=== PATIENT | female | born 1970 | race Two or more races ===

== ENCOUNTER 2019-05-31 16:35 | Inpatient (IN) | payer OTHER ==
[2019-05-31 16:44] VITALS: BMI 38.7
--- NOTE | 2019-05-31 16:53 | PDOC ---
Rapid Medical Evaluation Time Seen by Provider: 05/31/19 16:39 Medical Evaluation: 05/31/19 16:41 I have performed a brief in-person evaluation of this patient. The patient presents with a chief complaint of: B/l leg pain. Pt poor historian w/ h/o bipolar and reports spinal injections in the past for ? LE weakness. Uses wheelchair currently and unclear if pt can ambulate. States she had short term rehab at [facility] where pt states staff broke her wheelchair and currently in [facility] and states she is no longer able to stay at [facility] for unclear reasons Pertinent physical exam findings:stable, in NAD, sitting in wheelchair I have ordered the following:nothing The patient will proceed to the ED for further evaluation. Discharge Disposition - Diagnosis Leg pain Qualifiers: Laterality: unspecified laterality Qualified Code(s): M79.606 - Pain in leg, unspecified - Referrals - Patient Instructions - Post Discharge Activity
[2019-05-31] MEDS ORDERED: KETOROLAC TROMETHAMINE 30 MG/1 ML VIAL IVPUSH ONE (17:30)
--- NOTE | 2019-05-31 17:41 | PDOC ---
History of Present Illness - General Chief Complaint: Pain Stated Complaint: LEG PAIN Time Seen by Provider: 05/31/19 16:39 History Source: Patient Exam Limitations: No Limitations Past History - Past Medical History Allergies/Adverse Reactions: Allergies Allergy/AdvReac Type Severity Reaction Status Date / Time No Known Allergies Allergy Verified 05/31/19 16:44 Home Medications: Ambulatory Orders Gabapentin 300 mg PO TID 05/31/19 Lisinopril [Zestril] 5 mg PO DAILY 05/31/19 Metformin HCl [Glucophage] 1,000 mg PO BID 05/31/19 Prednisone 5 mg PO DAILY 05/31/19 Simvastatin 20 mg PO DAILY 05/31/19 Ziprasidone [Geodon] 80 mg PO BID 05/31/19 COPD: Yes Diabetes: Yes HTN: Yes Hypercholesterolemia: Yes Psychiatric Problems: Yes (BIPOLAR,SCHIZOPHRENIA) - Immunization History Immunization Up to Date: Yes - Psycho Social/Smoking Cessation Hx Smoking History: Current every day smoker Have you smoked in the past 12 months: Yes Number of Cigarettes Smoked Daily: 8 Information on smoking cessation initiated: No Hx Alcohol Use: No Drug/Substance Use Hx: Yes (MARIJUANA) *Physical Exam - Vital Signs Last Vital Signs Temp Pulse Resp BP Pulse Ox 98.0 F 110 H 18 152/77 98 05/31/19 16:38 05/31/19 16:38 05/31/19 16:38 05/31/19 16:38 05/31/19 16:38 - Physical Exam General Appearance: No: Apparent Distress Respiratory/Chest: positive: Lungs Clear, Normal Breath Sounds. negative: Respiratory Distress Cardiovascular: positive: Regular Rhythm, Regular Rate, S1, S2. negative: Murmur Gastrointestinal/Abdominal: positive: Normal Bowel Sounds, Soft. negative: Tender, Distended, Guarding, Rebound Musculoskeletal: negative: Muscle Spasm, Vertebral Tenderness Neurologic: positive: Alert, Motor Strength 5/5, Other (able to ambulate few steps without assistance) ED Treatment Course - LABORATORY CBC & Chemistry Diagram: 05/31/19 17:39 05/31/19 17:39 Medical Decision Making - Medical Decision Making 48 y/o F hx of HTN, HLD, DM, bipolar, schizophrenia, neuropathy, transverse myelitis was recently discharged from [facility] 05/26 and now requesting to go back to rehab. Patient was recently diagnosed with transvere myelitis ( was seen in [facility]); she had MRI of brain and spine done as well as lumbar punctures when she was finally diagnosed with transverse myelitis. Patient states she was unable to be placed on high dose steroids given she was diabetic. Patient was started on low dose steroids and gabapentin. Patient mentions significant improvement with rehab and states the only reason she had to leave rehab last week was due to her insurance getting cut off. Patient was staying in [facility] assisted in the interim but states needs more rehab; states her insurance will not allow more rehab unless she gets admitted to the hospital for 3 days. Patient also mentions she needs new wheelchair (will also get once she gets admitted to [facility] [place] again; patient can not pay out of pocket for this). Denies fever, sob, cp, abd pain, vomiting, urinary complaints. Attempted to reach psychosocial rehabilitation counselor/CM but unable to get a hold of one D/W Dr. [place] - recommends basic labs, urine, pain control for now 05/31/19 17:33 Leukocytosis likely from use of steroids Glucose 444 Patient has been compliant with her Metformin, but has been unable to take her insulin since 05/26 as she does not have fridge Patient given 1L of NS IVF and 8 units of insulin Discussed case with Dr. Delarosa, who states she will come down to see patient 05/31/19 19:16 Dr. Delarosa agrees with admission 05/31/19 19:40 Discharge - Discharge Information Problems reviewed: Yes Clinical Impression/Diagnosis: Leg pain Qualifiers: Laterality: unspecified laterality Qualified Code(s): M79.606 - Pain in leg, unspecified Hyperglycemia due to type 2 diabetes mellitus Qualifiers: Diabetes mellitus adjunct faculty for medical terminology insulin use: unspecified nursing home insulin use status Qualified Code(s): E11.65 - Type 2 diabetes mellitus with hyperglycemia Condition: Stable - Admission Yes - Follow up/Referral - Patient Discharge Instructions - Post Discharge Activity
[2019-05-31] MEDS ORDERED: KETOROLAC TROMETHAMINE 30 MG/1 ML VIAL ONE (17:50)
[2019-05-31 18:00] LABS: URINE APPEARANCE CLEAR; URINE BILIRUBIN NEGATIVE (NEGATIVE); URINE COLOR YELLOW; URINE GLUCOSE (UA) 2+ (NEGATIVE); URINE KETONE NEGATIVE (NEGATIVE); URINE LEUK ESTERASE NEGATIVE (NEGATIVE); URINE NITRITE NEGATIVE (NEGATIVE); URINE PROTEIN NEGATIVE (NEGATIVE)
[2019-05-31 18:11] LABS: BASO % 1.2 % (0-2.0); HEMATOCRIT 39.1 % (32.4-45.2); HEMOGLOBIN 13.4 GM/dL (10.7-15.3); LYMPH % 26.4 % (8-40); MCH 30.4 pg (25.7-33.7); MCHC 34.4 g/dl (32.0-36.0); MEAN CELL VOLUME 88.4 fl (80-96); MEAN PLT VOLUME 9.1 fl (7.5-11.1); MONO % 7.5 % (3.8-10.2); NEUT % 62.9 % (42.8-82.8); PLATELET COUNT 418 K/MM3 (134-434); RBC 4.42 M/mm3 (3.60-5.2); RDW 13.4 % (11.6-15.6); WHITE BLOOD COUNT 14.9 K/mm3 (4.0-10.0)
[2019-05-31 18:25] LABS: ALBUMIN 3.5 g/dl (3.4-5.0); BILIRUBIN,TOTAL 0.4 mg/dL (0.2-1); BLOOD UREA NITROGEN 17.6 mg/dL (7-18); CREATININE 0.8 mg/dL (0.55-1.3); POTASSIUM 4.3 mmol/L (3.5-5.1); TOT PROT 7.7 g/dl (6.4-8.2)
[2019-05-31] MEDS ORDERED: SODIUM CHLORIDE 1,000 ML IV STA (18:33)
[2019-05-31] MEDS ORDERED: INSULIN REGULAR HUMAN 100 UNITS/ML *VIAL IVPUSH ONE (18:33)
--- NOTE | 2019-05-31 20:04 | HP ---
Admitting History and Physical - Primary Care Physician PCP: Marie Delarosa - Admission History of Present Illness: 48 y/o F hx of HTN, HLD, DM, bipolar, schizophrenia, neuropathy, transverse myelitis was recently discharged from [facility] 05/26 and now requesting to go back to rehab. Patient was recently diagnosed with transvere myelitis ( was seen in [facility]); she had MRI of brain and spine done as well as lumbar punctures when she was finally diagnosed with transverse myelitis. Patient states she was unable to be placed on high dose steroids given she was diabetic. Patient was started on low dose steroids and gabapentin. Patient mentions significant improvement with rehab and states the only reason she had to leave rehab last week was due to her insurance getting cut off. Patient was staying in [facility] skilled nursing in the interim but states needs more rehab; states her insurance will not allow more rehab unless she gets admitted to the hospital for 3 days. Patient also mentions she needs new wheelchair (will also get once she gets admitted to [facility] again; patient can not pay out of pocket for this). Denies fever, sob, cp, abd pain, vomiting, urinary complaints. - Smoking History Smoking history: Current every day smoker Have you smoked in the past 12 months: Yes Aproximately how many cigarettes per day: 8 - Alcohol/Substance Use Hx Alcohol Use: No Home Medications - Allergies Allergies/Adverse Reactions: Allergies Allergy/AdvReac Type Severity Reaction Status Date / Time No Known Allergies Allergy Verified 05/31/19 16:44 - Home Medications Home Medications: Ambulatory Orders Gabapentin 600 mg PO TID 05/31/19 Lisinopril [Zestril] 5 mg PO DAILY 05/31/19 Metformin HCl [Glucophage] 1,000 mg PO BID 05/31/19 Prednisone 5 mg PO DAILY 05/31/19 Simvastatin 20 mg PO DAILY 05/31/19 Ziprasidone [Geodon -] 80 mg PO BID 05/31/19 Physical Examination Vital Signs: Vital Signs Temperature 98.0 F 05/31/19 16:38 Pulse Rate 110 H 05/31/19 16:38 Respiratory Rate 18 05/31/19 16:38 Blood Pressure 152/77 05/31/19 16:38 O2 Sat by Pulse Oximetry (%) 98 05/31/19 16:38 Constitutional: Yes: No Distress HENT: Yes: Atraumatic Neck: Yes: Supple Cardiovascular: Yes: Regular Rate and Rhythm Respiratory: Yes: CTA Bilaterally Gastrointestinal: Yes: Normal Bowel Sounds Extremities: Yes: WNL Neurological: Yes: Alert, Oriented Labs: CBC, BMP 05/31/19 17:39 05/31/19 17:39 Problem List - Problems (1) Hyperglycemia due to type 2 diabetes mellitus Assessment/Plan: continue home meds bgms Code(s): E11.65 - TYPE 2 DIABETES MELLITUS WITH HYPERGLYCEMIA Qualifiers: Diabetes mellitus skilled nursing insulin use: unspecified intermediate project manager insulin use status Qualified Code(s): E11.65 - Type 2 diabetes mellitus with hyperglycemia (2) Leg pain Assessment/Plan: on meds Code(s): M79.606 - PAIN IN LEG, UNSPECIFIED Qualifiers: Laterality: unspecified laterality Qualified Code(s): M79.606 - Pain in leg , unspecified (3) HTN (hypertension) Assessment/Plan: on meds Code(s): I10 - ESSENTIAL (PRIMARY) HYPERTENSION Assessment/Plan Laboratory Tests 05/31/19 05/31/19 05/31/19 17:39 17:39 17:39 WBC 14.9 H RBC 4.42 Hgb 13.4 Hct 39.1 MCV 88.4 MCH 30.4 MCHC 34.4 RDW 13.4 Plt Count 418 MPV 9.1 Absolute Neuts (auto) 9.4 H Neutrophils % 62.9 Lymphocytes % 26.4 Monocytes % 7.5 Eosinophils % 2.0 Basophils % 1.2 Nucleated RBC % 0 Sodium 131 L Potassium 4.3 Chloride 99 Carbon Dioxide 23 Anion Gap 10 BUN 17.6 Creatinine 0.8 Est GFR (CKD-EPI)AfAm 101.75 Est GFR (CKD-EPI)NonAf 87.79 Random Glucose 444 H* Calcium 9.0 Total Bilirubin 0.4 AST 14 L ALT 25 Alkaline Phosphatase 150 H Total Protein 7.7 Albumin 3.5 Urine Color Yellow Urine Appearance Clear Urine pH 5.0 Ur Specific [place] 1.041 H Urine Protein Negative Urine Glucose (UA) 2+ H Urine Ketones Negative Urine Blood Negative Urine Nitrite Negative Urine Bilirubin Negative Urine Urobilinogen 1.0 Ur Leukocyte Esterase Negative Active Medications Generic Name Dose Route Start Last Admin Trade Name Freq PRN Reason Stop Dose Admin Acetaminophen 650 mg 06/01/19 19:15 Tylenol - PO Q6H PRN PAIN 4-10 Atorvastatin Calcium 10 mg 05/31/19 22:00 06/01/19 21:18 Lipitor - PO 10 mg HS GEORGE Administration Gabapentin 300 mg 05/31/19 22:00 06/02/19 05:19 Neurontin - PO 300 mg TID GEORGE Administration Heparin Sodium (Porcine) 5,000 unit 05/31/19 22:00 06/02/19 09:43 Heparin - SQ 5,000 unit BID GEORGE Administration Insulin Aspart 1 vial 05/31/19 22:00 06/02/19 12:39 Novolog Vial Sliding Scale - SQ 8 units ACHS GEORGE Administration Protocol Lisinopril 5 mg 06/01/19 10:00 06/02/19 09:43 Prinivil PO 5 mg DAILY GEORGE Administration Metformin HCl 1,000 mg 05/31/19 22:00 06/02/19 06:07 Glucophage - PO 1,000 mg BIDAC GEORGE Administration Ziprasidone 80 mg 05/31/19 22:00 06/02/19 08:47 Geodon - PO 80 mg BIDWM GEORGE Administration social work consult
[2019-05-31] MEDS ORDERED: metFORMIN HCL 500 MG TABLET (FP) ONE (22:40)
[2019-05-31] MEDS ORDERED: HEPARIN NA (PORCINE) 5,000 UNITS/ML 1ML VIAL ONE (22:41)
[2019-05-31] MEDS ORDERED: ATORVASTATIN CA 10 MG TABLET (FP) ONE (22:41)
[2019-05-31] MEDS ORDERED: GABAPENTIN 100 MG CAPSULE (FP) ONE (22:41)
[2019-05-31] MEDS: ATORVASTATIN CA 10 MG TABLET (FP) PO SCH (22:46)
[2019-05-31] MEDS: metFORMIN HCL 500 MG TABLET (FP) PO SCH (22:46)
[2019-05-31] MEDS: HEPARIN NA (PORCINE) 5,000 UNITS/ML 1ML VIAL SQ SCH (22:46)
[2019-05-31] MEDS: GABAPENTIN 300 MG CAPSULE (FP) PO SCH (22:46)
[2019-05-31] MEDS ORDERED: INSULIN (NOVOLOG) ASPART 100 UNITS/ML 10ML VIAL SQ ONE (23:01)
[2019-05-31] MEDS: INSULIN SLIDING SCALE (NOVOLOG) 1 VIAL SQ SCH (23:07)
[2019-06-01] MEDS: ZIPRASIDONE 40 MG CAPSULE (FP) PO SCH ×3 (00:31→16:48)
[2019-06-01] MEDS: metFORMIN HCL 500 MG TABLET (FP) PO SCH ×2 (06:23→16:21)
[2019-06-01] MEDS: INSULIN SLIDING SCALE (NOVOLOG) 1 VIAL SQ SCH ×4 (06:23→21:16)
[2019-06-01] MEDS: GABAPENTIN 300 MG CAPSULE (FP) PO SCH ×3 (06:24→21:17)
[2019-06-01 08:10] LABS: BASO % 0.9 % (0-2.0); HEMATOCRIT 33.4 % (32.4-45.2); HEMOGLOBIN 11.9 GM/dL (10.7-15.3); LYMPH % 34.8 % (8-40); MCH 31.1 pg (25.7-33.7); MCHC 35.7 g/dl (32.0-36.0); MEAN CELL VOLUME 87.2 fl (80-96); MEAN PLT VOLUME 8.6 fl (7.5-11.1); MONO % 8.1 % (3.8-10.2); NEUT % 53.2 % (42.8-82.8); PLATELET COUNT 314 K/MM3 (134-434); RBC 3.83 M/mm3 (3.60-5.2); RDW 13.4 % (11.6-15.6); WHITE BLOOD COUNT 9.6 K/mm3 (4.0-10.0)
[2019-06-01] MEDS ORDERED: PT OWN MED DRAWER 7, Y5N ONE ×2 (08:32→20:54)
[2019-06-01 08:43] LABS: ALBUMIN 2.8 g/dl (3.4-5.0); ALK PHOS 109 U/L (45-117); ANION GAP 7 MMOL/L (8-16); BILIRUBIN,TOTAL 0.4 mg/dL (0.2-1); BLOOD UREA NITROGEN 14.9 mg/dL (7-18); CALCIUM 8.3 mg/dL (8.5-10.1); CHLORIDE 107 mmol/L (98-107); CO2 24 mmol/L (21-32); CREATININE 0.5 mg/dL (0.55-1.3); GLUCOSE,RANDOM 223 mg/dL (74-106); POTASSIUM 4.1 mmol/L (3.5-5.1); SGOT/AST 11 U/L (15-37); SGPT/ALT 18 U/L (13-61); SODIUM 137 mmol/L (136-145); TOT PROT 5.8 g/dl (6.4-8.2)
[2019-06-01] MEDS: HEPARIN NA (PORCINE) 5,000 UNITS/ML 1ML VIAL SQ SCH ×2 (10:26→21:18)
[2019-06-01] MEDS: LISINOPRIL 5 MG TABLET (FP) PO SCH (10:27)
--- NOTE | 2019-06-01 10:36 | PN ---
Progress Note, Physician - Current Medication List Current Medications: Active Medications Atorvastatin Calcium (Lipitor -) 10 mg PO HS [facility] Last Admin: 05/31/19 22:46 Dose: 10 mg Gabapentin (Neurontin -) 300 mg PO TID [facility] Last Admin: 06/01/19 06:24 Dose: 300 mg Heparin Sodium (Porcine) (Heparin -) 5,000 unit SQ BID [facility] Last Admin: 06/01/19 10:26 Dose: 5,000 unit Insulin Aspart (Novolog Vial Sliding Scale -) 1 vial SQ ACHS [facility]; Protocol Last Admin: 06/01/19 06:23 Dose: 8 units Lisinopril (Prinivil) 5 mg PO DAILY [facility] Last Admin: 06/01/19 10:27 Dose: 5 mg Metformin HCl (Glucophage -) 1,000 mg PO BIDAC [facility] Last Admin: 06/01/19 06:23 Dose: 1,000 mg Ziprasidone (Geodon -) 80 mg PO BIDWM [facility] Last Admin: 06/01/19 10:25 Dose: 80 mg - Objective Vital Signs: Vital Signs Temperature 98.1 F 06/01/19 06:28 Pulse Rate 87 06/01/19 06:28 Respiratory Rate 20 06/01/19 06:28 Blood Pressure 99/60 06/01/19 06:28 O2 Sat by Pulse Oximetry (%) 100 05/31/19 22:00 Constitutional: Yes: No Distress HENT: Yes: Atraumatic Neck: Yes: Supple Cardiovascular: Yes: Regular Rate and Rhythm Respiratory: Yes: CTA Bilaterally Extremities: Yes: WNL Neurological: Yes: Alert, Oriented Labs: CBC, BMP 06/01/19 07:49 06/01/19 07:49 Problem List - Problems (1) Hyperglycemia due to type 2 diabetes mellitus Assessment/Plan: continue home meds bgms Code(s): E11.65 - TYPE 2 DIABETES MELLITUS WITH HYPERGLYCEMIA Qualifiers: Diabetes mellitus termite treater helper insulin use: unspecified termite treater helper insulin use status Qualified Code(s): E11.65 - Type 2 diabetes mellitus with hyperglycemia (2) Leg pain Assessment/Plan: on meds Code(s): M79.606 - PAIN IN LEG, UNSPECIFIED Qualifiers: Laterality: unspecified laterality Qualified Code(s): M79.606 - Pain in leg , unspecified (3) HTN (hypertension) Assessment/Plan: on meds monitor Code(s): I10 - ESSENTIAL (PRIMARY) HYPERTENSION
--- NOTE | 2019-06-01 14:39 | EKG ---
Test Reason : Blood Pressure : / mmHG Vent. Rate : 105 BPM Atrial Rate : 105 BPM P-R Int : 130 ms QRS Dur : 088 ms QT Int : 332 ms P-R-T Axes : 064 033 050 degrees QTc Int : 438 ms SINUS TACHYCARDIA WITH OCCASIONAL PREMATURE VENTRICULAR COMPLEXES OTHERWISE NORMAL ECG WHEN COMPARED WITH ECG OF 31-MAY-2019 19:15, NO SIGNIFICANT CHANGE WAS FOUND Confirmed by DEEPIKA ALLEN MD ([id number]) on 06/01/2019 2:39:00 PM Referred By: SHAINA MANZANO DR Confirmed By:DEEPIKA ALLEN MD
--- NOTE | 2019-06-01 14:42 | EKG ---
Test Reason : Blood Pressure : / mmHG Vent. Rate : 103 BPM Atrial Rate : 103 BPM P-R Int : 136 ms QRS Dur : 090 ms QT Int : 354 ms P-R-T Axes : 069 031 061 degrees QTc Int : 463 ms SINUS TACHYCARDIA WITH OCCASIONAL PREMATURE VENTRICULAR COMPLEXES CANNOT RULE OUT ANTERIOR INFARCT , AGE UNDETERMINED ABNORMAL ECG NO PREVIOUS ECGS AVAILABLE Confirmed by DEEPIKA ALLEN MD ([id number]) on 06/01/2019 2:42:27 PM Referred By: Confirmed By:DEEPIKA ALLEN MD
[2019-06-01] MEDS ORDERED: MAG HYDROX/AL HYDROX/SIMETH 30 ML UNIT-DOSE CUP PO ONE ×3 (14:45→19:15)
[2019-06-01] MEDS: ATORVASTATIN CA 10 MG TABLET (FP) PO SCH (21:18)
[2019-06-02] MEDS ORDERED: INSULIN (NOVOLOG) ASPART 100 UNITS/ML 10ML VIAL ONE ×3 (04:36→20:30)
[2019-06-02] MEDS: GABAPENTIN 300 MG CAPSULE (FP) PO SCH ×3 (05:19→21:03)
[2019-06-02] MEDS: metFORMIN HCL 500 MG TABLET (FP) PO SCH ×2 (06:07→17:36)
[2019-06-02] MEDS: INSULIN SLIDING SCALE (NOVOLOG) 1 VIAL SQ SCH ×4 (06:07→21:03)
[2019-06-02] MEDS ORDERED: PT OWN MED DRAWER 7, Y5N ONE ×2 (07:47→17:34)
[2019-06-02] MEDS: ZIPRASIDONE 40 MG CAPSULE (FP) PO SCH ×2 (08:47→17:36)
[2019-06-02] MEDS: HEPARIN NA (PORCINE) 5,000 UNITS/ML 1ML VIAL SQ SCH ×2 (09:43→21:03)
[2019-06-02] MEDS: LISINOPRIL 5 MG TABLET (FP) PO SCH (09:43)
--- NOTE | 2019-06-02 12:54 | PN ---
Progress Note, Physician - Current Medication List Current Medications: Active Medications Acetaminophen (Tylenol -) 650 mg PO Q6H PRN PRN Reason: PAIN 4-10 Atorvastatin Calcium (Lipitor -) 10 mg PO HS [facility] Last Admin: 06/01/19 21:18 Dose: 10 mg Gabapentin (Neurontin -) 300 mg PO TID [facility] Last Admin: 06/02/19 05:19 Dose: 300 mg Heparin Sodium (Porcine) (Heparin -) 5,000 unit SQ BID [facility] Last Admin: 06/02/19 09:43 Dose: 5,000 unit Insulin Aspart (Novolog Vial Sliding Scale -) 1 vial SQ ACHS [facility]; Protocol Last Admin: 06/02/19 12:39 Dose: 8 units Lisinopril (Prinivil) 5 mg PO DAILY [facility] Last Admin: 06/02/19 09:43 Dose: 5 mg Metformin HCl (Glucophage -) 1,000 mg PO BIDAC [facility] Last Admin: 06/02/19 06:07 Dose: 1,000 mg Ziprasidone (Geodon -) 80 mg PO BIDWM [facility] Last Admin: 06/02/19 08:47 Dose: 80 mg - Objective Vital Signs: Vital Signs Temperature 98.4 F 06/02/19 06:53 Pulse Rate 84 06/02/19 06:53 Respiratory Rate 20 06/02/19 06:53 Blood Pressure 125/70 06/02/19 06:53 O2 Sat by Pulse Oximetry (%) 100 06/01/19 21:00 Constitutional: Yes: No Distress HENT: Yes: Atraumatic Neck: Yes: Supple Cardiovascular: Yes: Regular Rate and Rhythm Respiratory: Yes: CTA Bilaterally Gastrointestinal: Yes: Normal Bowel Sounds Extremities: Yes: WNL Neurological: Yes: Alert, Oriented Labs: CBC, BMP 06/01/19 07:49 06/01/19 07:49 Problem List - Problems (1) Hyperglycemia due to type 2 diabetes mellitus Assessment/Plan: continue home meds bgms Code(s): E11.65 - TYPE 2 DIABETES MELLITUS WITH HYPERGLYCEMIA Qualifiers: Diabetes mellitus longterm insulin use: unspecified longterm insulin use status Qualified Code(s): E11.65 - Type 2 diabetes mellitus with hyperglycemia (2) Leg pain Assessment/Plan: on meds Code(s): M79.606 - PAIN IN LEG, UNSPECIFIED Qualifiers: Laterality: unspecified laterality Qualified Code(s): M79.606 - Pain in leg , unspecified (3) HTN (hypertension) Code(s): I10 - ESSENTIAL (PRIMARY) HYPERTENSION Assessment/Plan social work for placement
--- NOTE | 2019-06-02 12:56 | DS ---
Physical Examination Vital Signs: Vital Signs Temperature 98.4 F 06/02/19 06:53 Pulse Rate 84 06/02/19 06:53 Respiratory Rate 20 06/02/19 06:53 Blood Pressure 125/70 06/02/19 06:53 O2 Sat by Pulse Oximetry (%) 100 06/01/19 21:00 Labs: CBC, BMP 06/01/19 07:49 06/01/19 07:49 Discharge Summary Problems reviewed: Yes Reason For Visit: PAIN OF LOWER EXTREMITY Current Active Problems Hyperglycemia due to type 2 diabetes mellitus (Acute) Leg pain (Acute) Condition: Stable - Instructions - Home Medications Comprehensive Discharge Medication List: Ambulatory Orders Gabapentin 600 mg PO TID 05/31/19 Lisinopril [Zestril] 5 mg PO DAILY 05/31/19 Metformin HCl [Glucophage] 1,000 mg PO BID 05/31/19 Prednisone 5 mg PO DAILY 05/31/19 Simvastatin 20 mg PO DAILY 05/31/19 Ziprasidone [Geodon -] 80 mg PO BID 05/31/19
[2019-06-02] MEDS: ATORVASTATIN CA 10 MG TABLET (FP) PO SCH (21:03)
[2019-06-03] MEDS: metFORMIN HCL 500 MG TABLET (FP) PO SCH ×2 (06:24→17:44)
[2019-06-03] MEDS: GABAPENTIN 300 MG CAPSULE (FP) PO SCH ×3 (06:24→21:12)
[2019-06-03] MEDS: INSULIN SLIDING SCALE (NOVOLOG) 1 VIAL SQ SCH ×4 (06:25→21:13)
[2019-06-03] MEDS: ZIPRASIDONE 40 MG CAPSULE (FP) PO SCH ×2 (09:14→17:44)
[2019-06-03] MEDS: LISINOPRIL 5 MG TABLET (FP) PO SCH (09:14)
[2019-06-03] MEDS: HEPARIN NA (PORCINE) 5,000 UNITS/ML 1ML VIAL SQ SCH ×2 (09:15→21:12)
[2019-06-03] MEDS ORDERED: FLUCONAZOLE 150 MG TABLET PO ONE (14:30)
[2019-06-03] MEDS ORDERED: PT OWN MED DRAWER 7, Y5N ONE (17:34)
--- NOTE | 2019-06-03 17:56 | PN ---
Progress Note, Physician - Current Medication List Current Medications: Active Medications Acetaminophen (Tylenol -) 650 mg PO Q6H PRN PRN Reason: PAIN 4-10 Atorvastatin Calcium (Lipitor -) 10 mg PO HS [facility] Last Admin: 06/02/19 21:03 Dose: 10 mg Gabapentin (Neurontin -) 300 mg PO TID [facility] Last Admin: 06/03/19 15:21 Dose: 300 mg Heparin Sodium (Porcine) (Heparin -) 5,000 unit SQ BID [facility] Last Admin: 06/03/19 09:15 Dose: 5,000 unit Insulin Aspart (Novolog Vial Sliding Scale -) 1 vial SQ ACHS [facility]; Protocol Last Admin: 06/03/19 17:44 Dose: 10 units Lisinopril (Prinivil) 5 mg PO DAILY [facility] Last Admin: 06/03/19 09:14 Dose: 5 mg Metformin HCl (Glucophage -) 1,000 mg PO BIDAC [facility] Last Admin: 06/03/19 17:44 Dose: 1,000 mg Ziprasidone (Geodon -) 80 mg PO BIDWM [facility] Last Admin: 06/03/19 17:44 Dose: 80 mg - Objective Vital Signs: Vital Signs Temperature 98.4 F 06/03/19 15:00 Pulse Rate 103 H 06/03/19 15:00 Respiratory Rate 20 06/03/19 15:00 Blood Pressure 120/70 06/03/19 15:00 O2 Sat by Pulse Oximetry (%) 100 06/02/19 21:00 Constitutional: Yes: No Distress HENT: Yes: Atraumatic Neck: Yes: Supple Cardiovascular: Yes: Regular Rate and Rhythm Respiratory: Yes: CTA Bilaterally Gastrointestinal: Yes: Normal Bowel Sounds Extremities: Yes: WNL Neurological: Yes: Alert, Oriented Labs: CBC, BMP 06/01/19 07:49 06/01/19 07:49 Problem List - Problems (1) Hyperglycemia due to type 2 diabetes mellitus Assessment/Plan: continue home meds bgms Code(s): E11.65 - TYPE 2 DIABETES MELLITUS WITH HYPERGLYCEMIA Qualifiers: Diabetes mellitus custodial insulin use: unspecified adjunct faculty for medical terminology insulin use status Qualified Code(s): E11.65 - Type 2 diabetes mellitus with hyperglycemia (2) Leg pain Assessment/Plan: on meds Code(s): M79.606 - PAIN IN LEG, UNSPECIFIED Qualifiers: Laterality: unspecified laterality Qualified Code(s): M79.606 - Pain in leg , unspecified (3) HTN (hypertension) Assessment/Plan: on meds monitor Code(s): I10 - ESSENTIAL (PRIMARY) HYPERTENSION
[2019-06-03] MEDS: ATORVASTATIN CA 10 MG TABLET (FP) PO SCH (21:12)
[2019-06-04] MEDS: INSULIN SLIDING SCALE (NOVOLOG) 1 VIAL SQ SCH ×4 (06:49→21:44)
[2019-06-04] MEDS: metFORMIN HCL 500 MG TABLET (FP) PO SCH ×2 (06:50→17:39)
[2019-06-04] MEDS: GABAPENTIN 300 MG CAPSULE (FP) PO SCH ×3 (06:50→21:43)
[2019-06-04] MEDS ORDERED: PT OWN MED DRAWER 7, Y5N ONE ×2 (09:35→17:32)
[2019-06-04] MEDS: ZIPRASIDONE 40 MG CAPSULE (FP) PO SCH ×2 (09:39→17:48)
[2019-06-04] MEDS: LISINOPRIL 5 MG TABLET (FP) PO SCH (09:39)
[2019-06-04] MEDS: HEPARIN NA (PORCINE) 5,000 UNITS/ML 1ML VIAL SQ SCH ×2 (09:39→21:43)
[2019-06-04] MEDS: ACETAMINOPHEN 325 MG TABLET (FP) PO PRN (11:04)
[2019-06-04] MEDS ORDERED: INSULIN (NOVOLOG) ASPART 100 UNITS/ML 10ML VIAL ONE (11:53)
--- NOTE | 2019-06-04 18:59 | PN ---
Progress Note, Physician - Current Medication List Current Medications: Active Medications Acetaminophen (Tylenol -) 650 mg PO Q6H PRN PRN Reason: PAIN 4-10 Last Admin: 06/04/19 11:04 Dose: 650 mg Atorvastatin Calcium (Lipitor -) 10 mg PO HS [facility] Last Admin: 06/03/19 21:12 Dose: 10 mg Gabapentin (Neurontin -) 300 mg PO TID [facility] Last Admin: 06/04/19 14:56 Dose: 300 mg Heparin Sodium (Porcine) (Heparin -) 5,000 unit SQ BID [facility] Last Admin: 06/04/19 09:39 Dose: 5,000 unit Insulin Aspart (Novolog Vial Sliding Scale -) 1 vial SQ ACHS [facility]; Protocol Last Admin: 06/04/19 17:44 Dose: 6 units Lisinopril (Prinivil) 5 mg PO DAILY [facility] Last Admin: 06/04/19 09:39 Dose: 5 mg Metformin HCl (Glucophage -) 1,000 mg PO BIDAC [facility] Last Admin: 06/04/19 17:39 Dose: 1,000 mg Ziprasidone (Geodon -) 80 mg PO BIDWM [facility] Last Admin: 06/04/19 17:48 Dose: 80 mg - Objective Vital Signs: Vital Signs Temperature 98.5 F 06/04/19 17:25 Pulse Rate 100 H 06/04/19 17:25 Respiratory Rate 20 06/04/19 17:25 Blood Pressure 119/54 L 06/04/19 17:25 O2 Sat by Pulse Oximetry (%) 99 06/04/19 09:00 Constitutional: Yes: No Distress HENT: Yes: Atraumatic Neck: Yes: Supple Cardiovascular: Yes: Regular Rate and Rhythm Respiratory: Yes: CTA Bilaterally Gastrointestinal: Yes: Normal Bowel Sounds Extremities: Yes: WNL Edema: No Peripheral Pulses WNL: Yes Neurological: Yes: Alert, Oriented Labs: CBC, BMP 06/01/19 07:49 06/01/19 07:49 Problem List - Problems (1) Hyperglycemia due to type 2 diabetes mellitus Assessment/Plan: continue home meds bgms Code(s): E11.65 - TYPE 2 DIABETES MELLITUS WITH HYPERGLYCEMIA Qualifiers: Diabetes mellitus alf insulin use: unspecified alf insulin use status Qualified Code(s): E11.65 - Type 2 diabetes mellitus with hyperglycemia (2) Leg pain Assessment/Plan: on meds Code(s): Justin79.606 - PAIN IN LEG, UNSPECIFIED Qualifiers: Laterality: unspecified laterality Qualified Code(s): M79.606 - Pain in leg , unspecified (3) HTN (hypertension) Assessment/Plan: on meds monitor Code(s): I10 - ESSENTIAL (PRIMARY) HYPERTENSION Assessment/Plan FOR SNF PLACEMENT
[2019-06-04] MEDS: ATORVASTATIN CA 10 MG TABLET (FP) PO SCH (21:43)
[2019-06-05] MEDS: metFORMIN HCL 500 MG TABLET (FP) PO SCH ×2 (06:17→17:01)
[2019-06-05] MEDS: INSULIN SLIDING SCALE (NOVOLOG) 1 VIAL SQ SCH ×4 (06:17→21:47)
[2019-06-05] MEDS: GABAPENTIN 300 MG CAPSULE (FP) PO SCH ×3 (06:17→21:44)
[2019-06-05] MEDS ORDERED: INSULIN (NOVOLOG) ASPART 100 UNITS/ML 10ML VIAL ONE (09:21)
[2019-06-05] MEDS: LISINOPRIL 5 MG TABLET (FP) PO SCH (10:03)
[2019-06-05] MEDS: HEPARIN NA (PORCINE) 5,000 UNITS/ML 1ML VIAL SQ SCH ×2 (10:05→21:44)
[2019-06-05] MEDS: ZIPRASIDONE 40 MG CAPSULE (FP) PO SCH ×2 (10:05→17:02)
[2019-06-05 18:07] LABS: CK-MM 100 % (97-100)
[2019-06-05 18:07] LABS: CK-MM 100 % (97-100)
--- NOTE | 2019-06-05 18:20 | PN ---
Progress Note, Physician - Current Medication List Current Medications: Active Medications Acetaminophen (Tylenol -) 650 mg PO Q6H PRN PRN Reason: PAIN 4-10 Last Admin: 06/04/19 11:04 Dose: 650 mg Atorvastatin Calcium (Lipitor -) 10 mg PO HS [facility] Last Admin: 06/04/19 21:43 Dose: 10 mg Gabapentin (Neurontin -) 300 mg PO TID [facility] Last Admin: 06/05/19 17:01 Dose: 300 mg Heparin Sodium (Porcine) (Heparin -) 5,000 unit SQ BID [facility] Last Admin: 06/05/19 10:05 Dose: 5,000 unit Insulin Aspart (Novolog Vial Sliding Scale -) 1 vial SQ ACHS [facility]; Protocol Last Admin: 06/05/19 17:00 Dose: 6 units Lisinopril (Prinivil) 5 mg PO DAILY [facility] Last Admin: 06/05/19 10:03 Dose: 5 mg Metformin HCl (Glucophage -) 1,000 mg PO BIDAC [facility] Last Admin: 06/05/19 17:01 Dose: 1,000 mg Ziprasidone (Geodon -) 80 mg PO BIDWM [facility] Last Admin: 06/05/19 17:02 Dose: 80 mg - Objective Vital Signs: Vital Signs Temperature 98.1 F 06/05/19 16:20 Pulse Rate 108 H 06/05/19 16:20 Respiratory Rate 20 06/05/19 16:20 Blood Pressure 141/63 06/05/19 16:20 O2 Sat by Pulse Oximetry (%) 99 06/05/19 09:00 Constitutional: Yes: No Distress HENT: Yes: Atraumatic Neck: Yes: Supple Cardiovascular: Yes: Regular Rate and Rhythm Respiratory: Yes: CTA Bilaterally Gastrointestinal: Yes: Normal Bowel Sounds Extremities: Yes: WNL Edema: No Peripheral Pulses WNL: Yes Neurological: Yes: Alert, Oriented Labs: CBC, BMP 06/01/19 07:49 06/01/19 07:49 Problem List - Problems (1) Hyperglycemia due to type 2 diabetes mellitus Assessment/Plan: continue home meds bgms Code(s): E11.65 - TYPE 2 DIABETES MELLITUS WITH HYPERGLYCEMIA Qualifiers: Diabetes mellitus care home insulin use: unspecified care home insulin use status Qualified Code(s): E11.65 - Type 2 diabetes mellitus with hyperglycemia (2) Leg pain Assessment/Plan: on meds Code(s): M79.606 - PAIN IN LEG, UNSPECIFIED Qualifiers: Laterality: unspecified laterality Qualified Code(s): M79.606 - Pain in leg , unspecified (3) HTN (hypertension) Assessment/Plan: on meds monitor Code(s): I10 - ESSENTIAL (PRIMARY) HYPERTENSION
[2019-06-05] MEDS: ATORVASTATIN CA 10 MG TABLET (FP) PO SCH (21:44)
[2019-06-06] MEDS: INSULIN SLIDING SCALE (NOVOLOG) 1 VIAL SQ SCH ×2 (06:03→12:29)
[2019-06-06] MEDS: GABAPENTIN 300 MG CAPSULE (FP) PO SCH ×2 (06:04→14:22)
[2019-06-06] MEDS: metFORMIN HCL 500 MG TABLET (FP) PO SCH (06:04)
[2019-06-06] MEDS ORDERED: PT OWN MED DRAWER 7, Y5N ONE ×3 (07:35→09:38)
[2019-06-06] MEDS: ACETAMINOPHEN 325 MG TABLET (FP) PO PRN ×2 (07:39→14:22)
[2019-06-06] MEDS: ZIPRASIDONE 40 MG CAPSULE (FP) PO SCH (09:49)
[2019-06-06] MEDS: HEPARIN NA (PORCINE) 5,000 UNITS/ML 1ML VIAL SQ SCH (09:49)
[2019-06-06] MEDS: LISINOPRIL 5 MG TABLET (FP) PO SCH (09:50)
[2019-06-06 15:50] VITALS: BP 120/65; PULSE 88; TEMP 98
--- NOTE | 2019-06-06 15:54 | PN ---
Progress Note, Physician - Current Medication List Current Medications: Active Medications Acetaminophen (Tylenol -) 650 mg PO Q6H PRN PRN Reason: PAIN 4-10 Last Admin: 06/06/19 14:22 Dose: 650 mg Atorvastatin Calcium (Lipitor -) 10 mg PO HS [facility] Last Admin: 06/05/19 21:44 Dose: 10 mg Gabapentin (Neurontin -) 300 mg PO TID [facility] Last Admin: 06/06/19 14:22 Dose: 300 mg Heparin Sodium (Porcine) (Heparin -) 5,000 unit SQ BID [facility] Last Admin: 06/06/19 09:49 Dose: 5,000 unit Insulin Aspart (Novolog Vial Sliding Scale -) 1 vial SQ ACHS [facility]; Protocol Last Admin: 06/06/19 12:29 Dose: 6 units Lisinopril (Prinivil) 5 mg PO DAILY [facility] Last Admin: 06/06/19 09:50 Dose: 5 mg Metformin HCl (Glucophage -) 1,000 mg PO BIDAC [facility] Last Admin: 06/06/19 06:04 Dose: 1,000 mg Ziprasidone (Geodon -) 80 mg PO BIDWM [facility] Last Admin: 06/06/19 09:49 Dose: 80 mg - Objective Vital Signs: Vital Signs Temperature 98 F 06/06/19 10:00 Pulse Rate 88 06/06/19 10:00 Respiratory Rate 18 06/06/19 10:00 Blood Pressure 120/65 06/06/19 10:00 O2 Sat by Pulse Oximetry (%) 98 06/06/19 09:00 Labs: CBC, BMP 06/01/19 07:49 06/01/19 07:49 Problem List - Problems (1) Hyperglycemia due to type 2 diabetes mellitus Code(s): E11.65 - TYPE 2 DIABETES MELLITUS WITH HYPERGLYCEMIA Qualifiers: Diabetes mellitus termite treater insulin use: unspecified senior care insulin use status Qualified Code(s): E11.65 - Type 2 diabetes mellitus with hyperglycemia (2) Leg pain Code(s): M79.606 - PAIN IN LEG, UNSPECIFIED Qualifiers: Laterality: unspecified laterality Qualified Code(s): M79.606 - Pain in leg , unspecified (3) HTN (hypertension) Code(s): I10 - ESSENTIAL (PRIMARY) HYPERTENSION
--- NOTE | 2019-06-06 20:04 | DS ---
Physical Examination Vital Signs: Vital Signs Temperature 98 F 06/06/19 10:00 Pulse Rate 88 06/06/19 10:00 Respiratory Rate 18 06/06/19 10:00 Blood Pressure 120/65 06/06/19 10:00 O2 Sat by Pulse Oximetry (%) 98 06/06/19 09:00 Constitutional: Yes: No Distress HENT: Yes: Atraumatic Neck: Yes: Supple Cardiovascular: Yes: Regular Rate and Rhythm Respiratory: Yes: CTA Bilaterally Gastrointestinal: Yes: Normal Bowel Sounds Extremities: Yes: WNL Edema: No Neurological: Yes: Alert, Oriented Labs: CBC, BMP 06/01/19 07:49 06/01/19 07:49 Discharge Summary Problems reviewed: Yes Reason For Visit: PAIN OF LOWER EXTREMITY Condition: Stable - Instructions Disposition: HOME - Home Medications Comprehensive Discharge Medication List: Ambulatory Orders Gabapentin 600 mg PO TID 05/31/19 Lisinopril [Zestril] 5 mg PO DAILY 05/31/19 Metformin HCl [Glucophage] 1,000 mg PO BID 05/31/19 Prednisone 5 mg PO DAILY 05/31/19 Simvastatin 20 mg PO DAILY 05/31/19 Ziprasidone [Geodon -] 80 mg PO BID 05/31/19 dc home
== END 2019-06-06 17:28 | disposition home or self-care (01) | DRG 420 ==
LOC: JER 16:35 → JERBED 19:40 → J8W 23:41
PROVIDERS: ADMIT Internal Medicine; ATTEND Internal Medicine
DX: E11.65 Type 2 diabetes mellitus with hyperglycemia (principal); M79.606 Pain in leg, unspecified; D72.829 Elevated white blood cell count, unspecified; F31.9 Bipolar disorder, unspecified; I10 Essential (primary) hypertension; E78.5 Hyperlipidemia, unspecified; F20.9 Schizophrenia, unspecified; E11.40 Type 2 diabetes mellitus with diabetic neuropathy, unspecified; F17.210 Nicotine dependence, cigarettes, uncomplicated
CPT/HCPCS: 36415; 71046-TC-FY; 80053; 81003; 82272; 82550; 82552; 82962; 84484; 85025; 87086; 93005; 93010; 97116-GP; 97161-GP; 99285-25; J1644; J7030